=== PATIENT | female | born 1960 | race Caucasian/White ===

== ENCOUNTER 2023-10-31 09:43 | Emergency (ER) | payer BC ==
[~2023-10-31] VITALS: Ht 162.6 cm; Wt 69.8 kg
[2023-10-31] VITALS (9 sets, daily range): BP systolic 104–129; BP diastolic 61–77
[2023-10-31] MEDS ORDERED: NAPROXEN500 MG PO (13:04)
[2023-10-31] MEDS ORDERED: LEVOCETIRIZINE D5 MG PO (13:04)
[2023-10-31] MEDS ORDERED: METHOCARBAMOL500 MG PO (13:04)
== END 2023-11-03 10:37 | disposition home or self-care (01) | DRG 204 ==
LOC: ED 09:43
DX: R07.81 Pleurodynia (principal)